=== PATIENT | female | born 1950 | race Caucasian/White ===

== ENCOUNTER → 2023-12-05 10:15 | Outpatient (REF) | payer OTHER, SELFPAY | LOC: RAD 10:15 | PROVIDERS: ATTENDING PHYSICIAN Family Medicine | DX: M79.642 Pain in left hand (principal); M79.89 Other specified soft tissue disorders | CPT/HCPCS: 73130 ==

== ENCOUNTER → 2023-12-20 10:53 | Outpatient (REF) | payer OTHER, SELFPAY | LOC: RAD 10:53 | PROVIDERS: ATTENDING PHYSICIAN Physician Assistant; FAMILY PHYSICIAN Family Medicine | DX: R06.02 Shortness of breath (principal) | CPT/HCPCS: 71046 ==

== ENCOUNTER → 2024-02-13 06:34 | Day surgery (SDC) | payer OTHER, SELFPAY | LOC: GI 06:34 | PROVIDERS: ATTENDING PHYSICIAN Internal Medicine Gastroenterology | DX: Z12.11 Encounter for screening for malignant neoplasm of colon (principal); K63.5 Polyp of colon; K55.20 Angiodysplasia of colon without hemorrhage; K57.30 Diverticulosis of large intestine without perforation or abscess without bleeding; K64.8 Other hemorrhoids; Z86.010 Personal history of colon polyps | CPT/HCPCS: 45380; 88305 ==

== ENCOUNTER → 2024-05-10 10:41 | Outpatient (REF) | payer OTHER, SELFPAY | LOC: RAD 10:41 | PROVIDERS: ATTENDING PHYSICIAN Family Medicine | DX: R06.09 Other forms of dyspnea (principal); M79.89 Other specified soft tissue disorders | CPT/HCPCS: 71046 ==

== ENCOUNTER → 2024-05-21 17:14 | Outpatient (REF) | payer OTHER, SELFPAY | LOC: RCS 17:14 | PROVIDERS: ATTENDING PHYSICIAN Family Medicine | DX: R06.09 Other forms of dyspnea (principal); M79.89 Other specified soft tissue disorders | CPT/HCPCS: 93306 ==

== ENCOUNTER → 2024-07-04 12:50 | Outpatient (REF) | payer OTHER, SELFPAY | LOC: RAD 12:50 | PROVIDERS: ATTENDING PHYSICIAN Family Medicine | DX: R79.89 Other specified abnormal findings of blood chemistry (principal); K76.0 Fatty (change of) liver, not elsewhere classified | CPT/HCPCS: 76700 ==

== ENCOUNTER → 2024-11-19 07:19 | Outpatient (REF) | payer OTHER, SELFPAY | LOC: HWRCS 07:19 | PROVIDERS: ATTENDING PHYSICIAN Internal Medicine; FAMILY PHYSICIAN Family Medicine | DX: R07.9 Chest pain, unspecified (principal); I20.1 Angina pectoris with documented spasm; I51.81 Takotsubo syndrome; I44.0 Atrioventricular block, first degree; R94.31 Abnormal electrocardiogram [ECG] [EKG] | CPT/HCPCS: 78452; 93017; A9500 ==

== ENCOUNTER → 2025-02-07 14:09 | Outpatient (REF) | payer OTHER, SELFPAY | LOC: RAD 14:09 | PROVIDERS: ATTENDING PHYSICIAN Physician Assistant; FAMILY PHYSICIAN Family Medicine; REFERRING PHYSICIAN Physician Assistant | DX: M53.3 Sacrococcygeal disorders, not elsewhere classified (principal); R05.3 Chronic cough; R06.09 Other forms of dyspnea; M25.552 Pain in left hip | CPT/HCPCS: 71046; 72220; 73502 ==

== ENCOUNTER → 2025-03-01 10:53 | Outpatient (REF) | payer OTHER, SELFPAY | LOC: RCS 10:53 | PROVIDERS: ATTENDING PHYSICIAN Physician Assistant | DX: R06.09 Other forms of dyspnea (principal) | CPT/HCPCS: 93306 ==

== ENCOUNTER → 2025-03-18 09:02 | Outpatient (REF) | payer OTHER, SELFPAY | LOC: RAD 09:02 | PROVIDERS: ATTENDING PHYSICIAN Physician Assistant | DX: M85.852 Other specified disorders of bone density and structure, left thigh (principal) | CPT/HCPCS: 77080 ==

== ENCOUNTER → 2025-03-26 13:03 | Outpatient (REF) | payer OTHER, SELFPAY | LOC: RAD 13:03 | PROVIDERS: ATTENDING PHYSICIAN Physician Assistant | DX: R06.02 Shortness of breath (principal); R53.83 Other fatigue | CPT/HCPCS: 71260; 74177; Q9967 ==

== ENCOUNTER 2025-04-10 06:24 | Day surgery (SDC) | payer OTHER, SELFPAY | END 2025-04-10 10:29 | disposition home or self-care (01) | LOC: GI 06:24 | PROVIDERS: ATTENDING PHYSICIAN Internal Medicine Gastroenterology | DX: R12 Heartburn (principal); K70.30 Alcoholic cirrhosis of liver without ascites; K44.9 Diaphragmatic hernia without obstruction or gangrene; I86.4 Gastric varices; K22.89 Other specified disease of esophagus; K31.89 Other diseases of stomach and duodenum | CPT/HCPCS: 43239; 87220; 88305; 88342 ==

== ENCOUNTER → 2025-05-14 12:07 | Outpatient (REF) | payer OTHER, SELFPAY | LOC: RAD 12:07 | PROVIDERS: ATTENDING PHYSICIAN Physician Assistant | DX: M79.671 Pain in right foot (principal); M25.571 Pain in right ankle and joints of right foot | CPT/HCPCS: 73610; 73630 ==

== ENCOUNTER → 2025-05-16 10:43 | Outpatient (REF) | payer OTHER, SELFPAY ==
[2025-05-16 11:37] LABS: Hematocrit 38.6 % (37.0-47.0); Hemoglobin 12.5 g/dL (12.0-16.0); Mean Corp Hgb Conc. 32.4 g/dL (33.0-37.0); Mean Corpuscular Volume 100.3 fL (81.0-99.0); Nucleated Red Blood Cells % 0 %; Platelet Count 153 10^3/uL (130-400); Red Cell Dist. Width 13.7 % (11.5-14.5)
[2025-05-16 12:01] LABS: Blood Urea Nitrogen 20 mg/dl (7-17); Calcium 9.4 mg/dl (8.4-10.2); Carbon Dioxide 22 mmol/L (22-30); Chloride 107 mmol/L (98-107); Glucose 126 mg/dl (70-99); Potassium 4.1 mmol/L (3.5-5.1); Sodium 137 mmol/L (135-145); eGFR 59.49
== END ==
LOC: REG 10:43
PROVIDERS: ATTENDING PHYSICIAN Student in an Organized Health Care Education/Training Program; FAMILY PHYSICIAN Physician Assistant
DX: Z01.818 Encounter for other preprocedural examination (principal)
CPT/HCPCS: 36415; 80048; 85025

== ENCOUNTER 2025-05-28 23:35 | Inpatient (IN) | payer OTHER, SELFPAY ==
[2025-05-28 14:39] VITALS: BP 130/71
[2025-05-28 15:04] LABS: Hematocrit 33.5 % (37.0-47.0); Hemoglobin 11.4 g/dL (12.0-16.0); Mean Corp Hgb Conc. 34.0 g/dL (33.0-37.0); Mean Corpuscular Volume 95.7 fL (81.0-99.0); Nucleated Red Blood Cells % 0 %; Platelet Count 163 10^3/uL (130-400); Red Cell Dist. Width 14.4 % (11.5-14.5)
[2025-05-28 15:13] LABS: APTT 37.0 Sec (23.4-35.0); INR 1.42; PT 17.9 Sec (11.4-14.6)
[2025-05-28 15:24] LABS: ALT (SGPT) 32 U/L (0-35); AST (SGOT) 51 U/L (14-36); Albumin 3.9 g/dl (3.5-5.0); Alkaline Phosphatase 121 U/L (38-126); Blood Urea Nitrogen 19 mg/dl (7-17); Calcium 9.2 mg/dl (8.4-10.2); Carbon Dioxide 22 mmol/L (22-30); Chloride 109 mmol/L (98-107); Glucose 124 mg/dl (70-99); Potassium 3.3 mmol/L (3.5-5.1); Sodium 138 mmol/L (135-145); Total Protein 7.4 g/dl (6.3-8.2); eGFR > 60.00
--- NOTE | 2025-05-28 16:52 | ED.GENMED ---
History of Present Illness
<Bridget Peters NP - Last Filed: 05/28/25 23:05>
General
Chief Complaint: Change in Mental Status
Source: patient
Exam Limitations: none
Time Seen by Provider: 05/28/25 16:32
Nursing documentation reviewed up to this point in time: agreed with
History of Present Illness
History of Present Illness:
Patient to emergency department for evaluation of increased confusion, nausea, vomiting, diarrhea. According to family she had a recent fall with a fracture to her right distal fibula. She had surgery on this ankle 1 week ago, however family
states she will need another procedure. She was given a prescription for oxycodone for pain. Patient states she did not take the pain medication however the family is unsure. Over the past 24 hours they have noticed increasing confusion with her.
They also note episodes of vomiting and diarrhea. Patient reports that the stool is black. No prior history of same. She was evaluated by PCP and advised to come to the emergency department. PCP report of concern for OxyContin overuse. PCP
also reports a history of alcohol abuse with last drink possibly 2 to 3 days ago.
Past History
<Bridget Peters NP - Last Filed: 05/28/25 23:05>
Past History
ED Past Medical History: Asthma, GERD, CO (2013), Psychiatric (Anxiety) and Other (Takosubo's heart disease, osteoporosis)
ED Past Surgical History: Cardiac (Cardiac catheterization April 2014, Takosubo's heart disease)
Social History
Tobacco: Former smoker
Alcohol: Other (PCP reports history of alcohol abuse. Patient admits to drinking wine daily. Reports last drink was approximately 2 to 3 days ago.)
Personal:
Living: with family
Employment: Employed
Family History
Family History: Other (Noncontributory)
Review of Systems
<Bridget Petesr NP - Last Filed: 05/28/25 23:05>
Review of Systems
All Other Systems: ROS reviewed and negative except as documented in HPI and ROS
Constitutional: Reports no symptoms
EENT: Reports no symptoms
Respiratory: Reports no symptoms
Cardiac: Reports no symptoms
ABD/GI: Reports abdominal pain, nausea, vomiting and diarrhea
: Reports no symptoms
Musculoskeletal: Reports no symptoms
Skin: Reports no symptoms
Neurological: Reports no symptoms
Psychiatric: Reports no symptoms
Phy Exam
<Bridget Peters SENIOR SHAREPOINT DEVELOPER - Last Filed: 05/28/25 23:05>
General Physical Exam
General Presentation: moderate distress
General age: appears stated age
General Skin: warm and dry
General Habitus: normal
General Mental: alert
General Hydration: dry mucous membranes
Cardiovascular Exam
Cardiovascular Exam: regular rate/rhythm and no edema
Pulmonary Exam
Pulmonary Exam: lungs clear and no respiratory distress
Gastrointestinal Exam
Gastrointestinal Exam: normal bowel sounds, soft, no organomegaly, no pulsatile mass, non distended and no cva tenderness
Palpation: generalized: Moderate tenderness
Musculoskeletal Exam
Musculoskeletal Exam: full ROM
Skin Exam
Skin Exam: normal color, warm/dry and no rash
Psychiatric Exam
Psychiatric Exam: normal mood/affect
Course
<Bridget Peters SENIOR SHAREPOINT DEVELOPER - Last Filed: 05/28/25 23:05>
Orders/Labs/Results
Orders:
Orders
05/28/25 14:50
Complete Blood Count/With Diff Urgent
Comprehensive Metabolic Panel Urgent
Lipase Urgent
Magnesium Urgent
Comment: ADD ON
PTT Urgent
Prothrombin Time Urgent
05/28/25 16:33
Add On- LAB Urgent
Tests Added?: lipase
05/28/25 16:48
0.9% Sodium Chloride 1000 ml [Nss] 1,000 ml IV BOLUS
Pantoprazole [Protonix IV] 40 mg IV NOW STA
05/28/25 16:58
CT Head W/o Iv Contrast Urgent
Comment:
Reason For Exam: altered mental status
05/28/25 16:59
CT Abd/pelvis W Iv Cont Urgent
Comment:
Reason For Exam: Diffuse abd pain, elevated T. bili, heme pos stool
05/28/25 20:15
US Abdomen Limited Urgent
Reason For Exam: distended GB on CT
05/28/25 21:42
KCl 40 Meq/0.9%Sodchl 1000 ml [NSS with KCL 40 MEQ] 40 meq in 1,000 ml IV 250 mls/hr
05/28/25 21:43
Add On- LAB Urgent
Tests Added?: Mg
05/28/25 22:13
Urine Drug Abuse Screen Urgent
05/28/25 22:49
Magnesium Sulfate 1 grams 0.9% Sodium Chloride 100 ml [Nss] 100 ml IV NOW
05/28/25 22:54
Ammonia Urgent
Abnormal Lab Results
05/28/25
14:50
RBC 3.50 L 10^6/uL
(4.20-5.40)
Hgb 11.4 L g/dL
(12.0-16.0)
Hct 33.5 L %
(37.0-47.0)
MCH 32.6 H pg
(27.0-31.0)
Absolute Monos (auto) 0.7 H 10^3/uL
(0.1-0.6)
Monocytes % 14.6 H %
(1.7-9.3)
PT 17.9 H Sec
(11.4-14.6)
APTT 37.0 H Sec
(23.4-35.0)
Potassium 3.3 L mmol/L
(3.5-5.1)
Chloride 109 H mmol/L
(98-107)
BUN 19 H mg/dl
(7-17)
Glucose 124 H mg/dl
(70-99)
Total Bilirubin 3.4 H mg/dl
(0.2-1.3)
AST 51 H U/L
(14-36)
05/28/25 14:50
05/28/25 14:50
Vital Signs
Initial and Last Documented VS:
Initial Vital Signs
Temp Pulse Resp BP Pulse Ox
98.0 F 88 18 130/71 98
05/28/25 14:39 05/28/25 14:39 05/28/25 14:39 05/28/25 14:39 05/28/25 14:39
Last Documented Vital Signs
Temp Pulse Resp BP Pulse Ox
98.0 F 73 18 141/69 96
05/28/25 14:39 05/28/25 22:45 05/28/25 14:39 05/28/25 21:00 05/28/25 22:45
<Parmjit Perez, DO - Last Filed: 05/28/25 16:56>
Orders/Labs/Results
Orders:
Orders
05/28/25 14:50
Complete Blood Count/With Diff Urgent
Comprehensive Metabolic Panel Urgent
Lipase Urgent
Magnesium Urgent
Comment: ADD ON
PTT Urgent
Prothrombin Time Urgent
05/28/25 16:33
Add On- LAB Urgent
Tests Added?: lipase
05/28/25 16:48
0.9% Sodium Chloride 1000 ml [Nss] 1,000 ml IV BOLUS
Pantoprazole [Protonix IV] 40 mg IV NOW STA
05/28/25 16:58
CT Head W/o Iv Contrast Urgent
Comment:
Reason For Exam: altered mental status
05/28/25 16:59
CT Abd/pelvis W Iv Cont Urgent
Comment:
Reason For Exam: Diffuse abd pain, elevated T. bili, heme pos stool
05/28/25 20:15
US Abdomen Limited Urgent
Reason For Exam: distended GB on CT
05/28/25 21:42
KCl 40 Meq/0.9%Sodchl 1000 ml [NSS with KCL 40 MEQ] 40 meq in 1,000 ml IV 250 mls/hr
05/28/25 21:43
Add On- LAB Urgent
Tests Added?: Mg
05/28/25 22:13
Urine Drug Abuse Screen Urgent
05/28/25 22:49
Magnesium Sulfate 1 grams 0.9% Sodium Chloride 100 ml [Nss] 100 ml IV NOW
05/28/25 22:54
Ammonia Urgent
Abnormal Lab Results
05/28/25
14:50
RBC 3.50 L 10^6/uL
(4.20-5.40)
Hgb 11.4 L g/dL
(12.0-16.0)
Hct 33.5 L %
(37.0-47.0)
MCH 32.6 H pg
(27.0-31.0)
Absolute Monos (auto) 0.7 H 10^3/uL
(0.1-0.6)
Monocytes % 14.6 H %
(1.7-9.3)
PT 17.9 H Sec
(11.4-14.6)
APTT 37.0 H Sec
(23.4-35.0)
Potassium 3.3 L mmol/L
(3.5-5.1)
Chloride 109 H mmol/L
(98-107)
BUN 19 H mg/dl
(7-17)
Glucose 124 H mg/dl
(70-99)
Total Bilirubin 3.4 H mg/dl
(0.2-1.3)
AST 51 H U/L
(14-36)
05/28/25 14:50
05/28/25 14:50
Vital Signs
Initial and Last Documented VS:
Initial Vital Signs
Temp Pulse Resp BP Pulse Ox
98.0 F 88 18 130/71 98
05/28/25 14:39 05/28/25 14:39 05/28/25 14:39 05/28/25 14:39 05/28/25 14:39
Last Documented Vital Signs
Temp Pulse Resp BP Pulse Ox
98.0 F 73 18 141/69 96
05/28/25 14:39 05/28/25 22:45 05/28/25 14:39 05/28/25 21:00 05/28/25 22:45
<Bridget Peters NP - Last Filed: 05/28/25 23:05>
*Radiology
Radiology exam reviewed: radiology read reviewed
*Pulse Oximetry
SaO2: 98
Oxygen Mode of Delivery: Room air
Patient hypoxic: no
*Critical Care Note
Total Time (30-74mins, 75-104mins- exclusive of procedures): Not Applicable
<Bridget Peters NP - Last Filed: 05/28/25 23:05>
Update Note
Update Note:
Patient to the emergency department for evaluation of increasing confusion, nausea, vomiting, diarrhea. She had surgery approximately 1 week ago on her right distal fibula for a fracture after a fall. She was prescribed oxycodone for pain control
at home. Patient states that she has not been taking any narcotic pain medications however family was unsure if this was accurate. She does have a history of daily alcohol use as reported by her primary care provider. Patient does admit to daily
wine drinking but reports she has not had a drink in the past 4 days. There are no signs of withdrawal on her exam today. Patient also reports that her stools are black. Rectal exam completed and confirms black tarry stool, heme positive.
Pantoprazole 40 mg initiated along with IV fluids. On exam she is awake and alert and cooperative. Is oriented to person place and time. CT of head completed, no acute findings. Labs reviewed WBC 4.9. Hemoglobin 11.4 hematocrit 33.5. K3 0.3
1LNSS with 40 meq KCL ordered. BUN 19 creatinine normal at 0.7 T. bili is 3.4 with an AST of 5.1. Ultrasound report reviewed, similar to results of ultrasound performed 07/02.. Gallbladder distention. No gallstones or wall thickening or
Pericholecystic fluid noted. Common bile duct 9 mm. This is decreased from 07/02 when the bile duct measured approximately [address] of abdomen and pelvis also completed. Mild circumferential wall thickening of the sigmoid colon concerning for
colitis. No no perforation or abscess. Case discussed with Dr. Beyer who also reviewed labs and radiology imaging. Patient will be admitted to the hospitalist service for GI bleeding, dehydration, hypokalemia
ED Attending Note
<Bridget Peters NP - Last Filed: 05/28/25 23:05>
-
Portions of this chart may have been created with voice recognition software.� Occasional wrong word or��sound alike� substitutions may have occurred due to the inherent limitations of voice recognition software.
<Parmjit Perez DO - Last Filed: 05/28/25 16:56>
ED Attending Note
Patient seen and examined by attending physician: Yes
I performed the substantive portion of visit, reviewed & personally made and approve the management plan that is documented in note by myself or WILLIAMS.: Yes
ED Attending Note:
I have seen and evaluated the patient with a [id number] encounter. I have spoken to the advance practicer provider and involved in the medical history, the physical exam, medical decision making.
Evaluation and management service: agree unless noted differently below.
Results interpretation: agree unless noted differently below.
Focused HPI: 74-year-old female presenting with family for evaluation of altered mental status. Patient had recent femur fracture repair and has been on oxycodone for the past few days. Family believes she is taking too much accidentally. Patient
is unsure if she has taken too many. She is also complaining of black stool and abdominal pain. She apparently was sweaty and tremulous yesterday. She admits that she is a daily alcohol drinker and stopped about 4 days ago. We discussed some of
her symptoms could be mild withdrawal
Physical exam: No focal neurodeficits. Mild left upper and lower abdominal pain. No right upper quadrant tenderness
Medical Decision Making: Given the black stools, patient started on Protonix. Given the abdominal pain, will obtain CT. We discussed possible mild alcohol withdrawal as well. Patient will ultimately require admission
Discharge Plan
Departure
Patient Disposition: Admit
Date of Disposition: 05/28/25
Time of Disposition: 22:00
Presentation/result/management discussed w/ accepting MD/DO: Hospitalist
Patient with high blood pressure during this ER visit?: Yes
Condition: Fair
Covid-19: Not Applicable
Discharge Problem:
GI (gastrointestinal bleed), Acute dehydration, Hypokalemia
Prescriptions:
No Action
citalopram [Celexa] 40 mg Tablet
40 mg PO DAILY
clonazepam 0.5 mg Tablet
0.5 mg PO HS
rosuvastatin [Crestor] 5 mg Tablet
5 mg PO DAILY
quetiapine [Seroquel] 50 mg Tablet
150 mg PO HS
thiamine HCl (vitamin B1) 100 mg Tablet
100 mg PO DAILY
omeprazole 40 mg Capsule,Delayed Release(Dr/Ec)
40 mg PO DAILY
ferrous sulfate 325 mg (65 mg iron) Tablet
325 mg PO DAILY
lisinopril 5 mg Tablet
5 mg PO DAILY
Trelegy Ellipta 100-62.5-25 mcg Blister With Device
1 inh INHALATION R DAILY
Referrals:
Amanda Andrews PA [Family Provider, Family Practice]
Interventions
Interventions:
*Risk Screen - Suicide Last Done: 05/28/25 14:39
*General Assessment Last Done: 05/28/25 17:03
*Neglect/Abuse Screening Last Done: 05/28/25 17:03
*ED- Fall Risk Assessment Last Done: 05/28/25 17:03
*ED COVID-19 Vaccine History Last Done: 05/28/25 17:03
*ED Influenza Vaccine History Last Done: 05/28/25 17:03
ED- Pulmonary Assessment Last Done: 05/28/25 19:30
ED- Neurological Assessment Last Done: 05/28/25 19:30
ED- Cardiac Assessment Last Done: 05/28/25 19:30
ED Swallowing Screen Last Done: 05/28/25 22:12
Discharge Date and Time
Print Language: GRENADIAN
[2025-05-28 17:03] VITALS: BMI 30.1
[2025-05-28 17:04] LABS: Lipase 92 U/L (23-300)
[2025-05-28 17:14] VITALS: BP 137/55
[2025-05-28] MEDS: PROTONIX IV 40 MG IV (17:15)
[2025-05-28] MEDS: NSS 1000 IV (17:15)
[2025-05-28 18:00] VITALS: BP 136/56
[2025-05-28 19:25] VITALS: BP 142/66
[2025-05-28 20:27] VITALS: BP 119/62
[2025-05-28 21:00] VITALS: BP 141/69
[2025-05-28] MEDS: NSS with KCL 40 MEQ 1000 IV (22:09)
--- NOTE | 2025-05-28 22:13 | HPS.HSE ---
Addendum entered and electronically signed by Bobby Gray DO 05/28/25 23:42:
Patient seen and examined independently. Agree with findings and plan as set forth by Demetrice Alarcon PA-C.
Patient is a 74y F with PMH significant for alcohol use disorder, cirrhosis and known varices who presents to ED complaining of N/V, black stools and confusion. Patient states that she underwent R fibula ORIF one week ago. She was taking
oxycodone as well as ibuprofen 600mg BID for pain control post-op. Two days ago she developed nausea and mild abdominal discomfort. She has had few episodes of non-bloody stools. Patient also notes black, loose stools. Patient appeared confused
today according to family and was brought to the ED for further evaluation and treatment.
Patient has a chronic history of alcohol use disorder. Her last drink was about 2 days ago.
Patient had an EGD done last month that showed grade II non-bleeding esophageal varices.
Ass:
Upper GI Bleed
Acute TME (med effect v hepatic encephalopathy)
Alcohol Use Disorder with Esophageal Varices and Mild Thrombocytopenia
Hypokalemia
Benign Hypertension
Bipolar Disorder
Asthma without Acute Exacerbation
Right Distal Fibula Fracture s/p ORIF
Plan:
Admit for further evaluation and treatment.
Given known esophageal varices, will treat with IV PPI infusion / octreotide and ceftriaxone for now.
Follow H&H and transfuse if needed.
GI evaluation for additional recommendations and possible endoscopic examination.
MSAS protocol / BZDs as needed for withdrawal symptoms.
NWB to the RLE. PT / OT evaluations.
Hold PO medications.
Original Note:
Family Physician
-
Family Physician: ALEJANDRO Byers
Chief Complaint
-
Confusion, Nausea, Vomiting and Diarrhea
History of Present Illness
Patient is a 74 y/o female past medical history of alcohol use disorder with alcoholic cirrhosis and gastroesophageal varices who presents with confusion, nausea, vomiting and diarrhea. Patient reports she underwent surgery for a right ankle
fracture one week ago. She reports due to the pain she has been taking ibuprofen 600mg twice a days and oxycodone 5mg two to three times a day. One Monday she developed nausea, vomiting and diarrhea. She describe vomiting a yellow/green in color
without evidence of blood. She described diarrhea as very dark / black in color. She reports mild abdominal discomfort. Today family noted that she was more confused prompting them to bring her to the emergency department for evaluation. Patient
agrees that her mind is not as clear as usual. Patient expresses concern that she may also be in alcohol withdrawal as she usually drinks about half bottle of wine a night, but has not had any alcohol since onset of vomiting two days ago.
Medical History
Past Medical History
Past Medical History: Reports Other
Additional Past Medical History:
Alcohol Use Disorder
Alcoholic Cirrhosis
Gastroesophageal Varices
Takotsubo Cardiomyopathy
Anxiety / Depression / Bipolar Disorder
Asthma
Past Surgical History: Reports Other
Additional Past Surgical History:
Left Knee Replacement
Right Ankle ORIF
Social History
Tobacco: Non-smoker
Alcohol: Daily
Family History
Family History: Not pertinent
Allergies / Home Medications
Allergies reflects when Allergies were last updated in [facility].
Home Medications with original date entered in [facility]
Allergy/Medication List:
Allergies
Allergy/AdvReac Type Severity Reaction Status Date / Time
duloxetine HCl (From Allergy diarrhea Verified 05/28/25 14:39
Cymbalta)
pine nuts,walnuts,pecans Allergy tongue and Uncoded 05/28/25 14:39
throat
swell
Home Medications
citalopram 40 mg tablet (Celexa) 40 mg PO DAILY Mental Health/Anxiety 07/04/23
clonazepam 0.5 mg tablet 0.5 mg PO HS Mental Health/Anxiety 07/04/23
quetiapine 50 mg tablet (Seroquel) 150 mg PO HS Mental Health/Anxiety 07/04/23
rosuvastatin 5 mg tablet (Crestor) 5 mg PO DAILY High Cholesterol 07/04/23
ferrous sulfate 325 mg (65 mg iron) tablet 325 mg PO DAILY Supplement 05/28/25
fluticasone fur. 100 mcg-umeclid 62.5 mcg-vilant 25 mcg inhalat.powder (Trelegy Ellipta) 1 inh inhalation R DAILY Lung/Breathing Issues 05/28/25
lisinopril 5 mg tablet 5 mg PO DAILY Blood Pressure 05/28/25
omeprazole 40 mg capsule,delayed release 40 mg PO DAILY Gastrointestinal Issue 05/28/25
thiamine HCl (vitamin B1) 100 mg tablet 100 mg PO DAILY Supplement 05/28/25
Review of Systems
-
A 12 point ROS was completed and negative except as noted: Yes
Constitutional: Denies Fever or Chills
Respiratory: Denies Cough or Trouble Breathing
Cardiac: Denies Chest Pain or Palpitations
Abdomen/GI: Reports See HPI
Physical Exam
Vital Signs
Vital Signs
Temp Pulse Resp BP Pulse Ox
98.0 F 78 18 141/69 97
05/28/25 14:39 05/28/25 22:08 05/28/25 14:39 05/28/25 21:00 05/28/25 22:08
Physical Exam
General: Comfortable and Conversant
HEENT: Anicteric and Moist mucous membranes
Respiratory: Clear and Non Labored Respirations
Cardiac: S1/S2 and Regular Rhythm
GI: Soft and Tender (Mild throughout, though slightly more tender in right upper quadrant)
Rectal: Other (Black, tarry, heme-positive per ED provider)
Musculoskeletal: No Clubbing, No Cyanosis and Other (Right foot/ankle wrapped in ZINA)
Skin: Warm and Dry
Neuro: Awake, Alert, Oriented and Nonfocal/grossly intact
Psych: Calm
Laboratory Results
-
05/28/25 14:50
05/28/25 14:50
Laboratory Results
PT 17.9 Sec (11.4-14.6) H 05/28/25 14:50
INR 1.42 05/28/25 14:50
APTT 37.0 Sec (23.4-35.0) H 05/28/25 14:50
Total Bilirubin 3.4 mg/dl (0.2-1.3) H 05/28/25 14:50
AST 51 U/L (14-36) H 05/28/25 14:50
ALT 32 U/L (0-35) 05/28/25 14:50
Alkaline Phosphatase 121 U/L (38-126) 05/28/25 14:50
Lipase 92 U/L (23-300) 05/28/25 14:50
Data Reviewed
-
Lab Data: Labs Reviewed by me
Old Records: Reviewed
Impression/Plan
-
GI Bleed, likely upper in nature as patient has known gastroesophageal varices and was taking high dose NSAIDs
-Consult GI
-Start Protonix and Octreotide Infusions
-Start ceftriaxone
-Monitor serial Hgb
Confusion, suspect related to polypharmacy with recent addition of oxycodone to chronic clonazepam
-Hold oxycodone and clonazepam for now
-Check ammonia level
Hypokalemia
-Replace potassium
-Recheck labs in AM
Elevated Bilirubin
-Patient has long standing history of common bile duct dilation however bilirubin has not previously been elevated
-Consider MRI/MRCP when stable
-Continue to trend bilirubin
Alcohol Use Disorder
-Continue thiamine and folic acid
-Monitor for alcohol withdrawal
Anxiety / Depression /Bipolar Disorder
Benzodiazepine Dependence
-Hold clonazepam, citalopram and quetiapine
Essential Hypertension
-Hold lisinopril
Hyperlipidemia
-Hold rosuvastatin
Asthma, no acute exacerbation
-Continue Trelegy
Right Distal Fibula Fracture s/p Right Fibula ORIF (?) ~ one week ago
-Unclear weight bearing status, will make non-weight bearing for now - Please reach out to Dr. Soto in AM to clarify
-Consult PT/OT
DVT proph: SCDs
Code Status: Full Code
[2025-05-28 22:25] LABS: Magnesium 1.7 mg/dl (1.6-2.3)
[2025-05-28 23:33] LABS: Ammonia < 9 umol/L (9-30)
[2025-05-28] MEDS: ROCEPHIN 1000 MG IV (23:41)
[2025-05-28] MEDS: SANDOSTATIN 50 MCG IV (23:42)
[2025-05-28] MEDS: STERILE WATER FOR INJECTION 10 ML IV (23:45)
[2025-05-28] MEDS: SANDOSTATIN 250 MCG IV (23:48)
[2025-05-28] MEDS: MAGNESIUM SULFATE 102 GRAMS IV (23:53)
[2025-05-28] MEDS: PROTONIX 100 IV (23:55)
[2025-05-29] VITALS (12 sets, daily range): BP systolic 111–148; BP diastolic 52–71; BMI 31.4
[2025-05-29 00:50] LABS: Hematocrit 32.7 % (37.0-47.0); Hemoglobin 10.8 g/dL (12.0-16.0)
[2025-05-29] MEDS: NSS 1000 IV ×3 (01:09→21:17)
--- NOTE | 2025-05-29 01:18 | PTCARENOTE ---
Received pt from ED via stretcher. AAOx3; pleasant. No complaints of nausea at this time. No evidence of bleeding. Suction set up at bedside. Assessment as documented. Call gutierrez within reach.
[2025-05-29 05:20] LABS: Hematocrit 31.0 % (37.0-47.0); Hemoglobin 10.4 g/dL (12.0-16.0); Mean Corp Hgb Conc. 33.5 g/dL (33.0-37.0); Mean Corpuscular Volume 100.3 fL (81.0-99.0); Platelet Count 136 10^3/uL (130-400); Red Cell Dist. Width 14.5 % (11.5-14.5)
[2025-05-29 05:33] LABS: ALT (SGPT) 29 U/L (0-35); AST (SGOT) 49 U/L (14-36); Albumin 3.3 g/dl (3.5-5.0); Alkaline Phosphatase 103 U/L (38-126); Blood Urea Nitrogen 15 mg/dl (7-17); Calcium 7.9 mg/dl (8.4-10.2); Carbon Dioxide 18 mmol/L (22-30); Chloride 117 mmol/L (98-107); Estimated Creatinine Clearance 72 ml/min; Glucose 107 mg/dl (70-99); Magnesium 2.0 mg/dl (1.6-2.3); Potassium 4.1 mmol/L (3.5-5.1); Sodium 144 mmol/L (135-145); Total Protein 6.2 g/dl (6.3-8.2); eGFR > 60.00
--- NOTE | 2025-05-29 06:57 | CON.GI ---
Addendum entered and electronically signed by Roney Bay DO 05/29/25 10:22:
I saw and examined the patient.
The HUMANITIES TEACHER's note was reviewed and I agree with the note.
Comment: Ms Beaver is a 74 y.o female with a past medical history significant for AUD, newly diagnosed compensated cirrhosis with known varices (without bleeding) and recent R fibular ORIF one week ago who presented to the ED with nausea, abdominal
discomfort and darker stools. Was taking oxycodone and Ibuprofen 600 mg BiD for post-op pain control over the past week. Two days ago had abdominal discomfort, nausea and darker black stools prompting her come to the ED. She is still unfortunately
drinking and drank a bottle of wine a few days ago. In regards to her cirrhosis, felt 2/2 EtOH without any known compensations. Last EGD 04/2025 with GOV2 and otherwise grossly normal. Otherwise, she is without any prior hx of bleeding EV, HE,
ascites or other known decompensations. In the ED, she was afebrile and HD-stable. Labs notable for drop in Hgb 11s -> 10s and normal BUN. She appeared confused on admission concerning for possible HE. Clinically, concern for NSAID-induced PUD upper
GI bleeding given her recent NSAIDs resulting in her abdominal pain, darker stools and symptomatic anemia. Much less likely variceal GI bleed based on her presentation although she continues to drink. Some concern for HE and suspect precipitated by
UGIB along with her recent oxycodone. Recommend keeping NPO, IV PPI gtt, IV Octreotide, along with IV Ceftriaxone pending EGD. Low threshold to start lactulose after EGD. Agree with rest of care as outlined below. See same day EGD report for
additional findings and recommendations.
GI will continue to follow, please call with any questions or concerns.
Original Note:
Consultation
-
Date/Time Consultation Requested: 05/29/25 0030
Date/Time Consultation Performed: 05/29/25 0700
Requesting Provider: Demetrice Alarcon PA-C
Performing Provider: Paris Kriney, MINE MOTOR OPERATORRoney SR DO
Reason for Consultation: GI bleed
Medical History
Chief Complaint / HPI
Chief Complaint: black stools
History of Present Illness:
Pt is a 74yo with hx GERD, anxiety, depression, bipolar, Takosubo's heart disease, prior AZ, asthma, insomnia, ETOH cirrhosis(newly diagnosed on CT 03/2025) with last ETOH (05/18 drinking 1 bottle wine daily) GOV2, EV, colon AVM, colon polyps,
dilated CBD due for follow up MRI. She now resents with recent fall with distal fibula fracture. She had been taking OxyContin and Aleve use. She now presents with multiple complaints with confusion, nausea, vomiting, or diarrhea with reports of
black stool. She also admits to vomiting but was states more yellow- green emesis. she also admits to lower abdominal pain and constipation with narcotic use. She otherwise denies odynophagia, dysphagia, GERD, diarrhea, or red stools. Pt with
recent EGD as noted. CT on admission with concern for colitis with distended GB and dilated CBD and US with similar finding with GB distention CBD dilation at 9 mm but prior CBD was 12mm in 2023. Pt denies anticoagulation use. Prior liver serology
neg 2022. Labs on admission with hbg 11.4 with drop to 10.4, platelets 136, K 3.3, bili 3.4, AST 51, ALT 32, alk phos 121, INR 1.42.
04/13/25 - EGD Dr. Greer - White nummular lesions in esophageal mucosa. Cells for cytology obtained.PAPA sent 2 cm hiatal hernia. Type 2 gastroesophageal varices (GOV2, esophageal varices which extend along the fundus), without bleeding
Erythematous mucosa in the antrum. Biopsied.Normal examined duodenum. Biopsied. bx neg H pylori, duodenal normal villous architecture
02/13/24- colon Dr. Greer- Non-bleeding internal hemorrhoids. - One small 5mm AVM in ascending colon - Diverticulosis in the sigmoid colon and in the descending colon.
- The examination was otherwise normal.- The examined portion of the ileum was normal- Two 5 to 6 mm polyps in the ascending colon, removed with a jumbo cold forceps. Resected and retrieved. bx HP
Past Medical History
Past Medical History: Asthma, GERD, Hypercholesterolemia, [place], Psychiatric (bipolar depression, anxiety ) and Other (insomnia, ETOH cirrhosis, GOV-2, EV, osteoporosis, takotsubo cardiomyopathy, colon polyps- TA and HP, anemia, CBD dilation, colonic
AVM)
Past Surgical History: Orthopedic (right ankle ORIF, left TKR)
Social History
Tobacco: Non-Smoker
Alcohol: Daily (quit 05/18 prior to admission- was drinking 1 bottle wine daily )
Drug: None
Personal:
Living: With Family
Employment: Retired
Family History
Family History: Other (aunt with BRITO cirrhosis )
Allergies / Home Medications
Allergy/AdvReac Type Severity Reaction Status Date / Time
duloxetine HCl (From Allergy diarrhea Verified 05/28/25 14:39
Cymbalta)
pecan nut Allergy tongue and Verified 05/28/25 23:11
throat
swell
pine nut Allergy tongue and Verified 05/28/25 23:11
throat
swell
walnut Allergy tongue and Verified 05/28/25 23:11
throat
swell
�Medication �Instructions �Recorded
citalopram 40 mg tablet (Celexa) 40 mg PO DAILY Mental 07/04/23
Health/Anxiety
clonazepam 0.5 mg tablet 0.5 mg PO HS Mental Health/Anxiety 07/04/23
quetiapine 50 mg tablet (Seroquel) 150 mg PO HS Mental Health/Anxiety 07/04/23
rosuvastatin 5 mg tablet (Crestor) 5 mg PO DAILY High Cholesterol 07/04/23
ferrous sulfate 325 mg (65 mg 325 mg PO DAILY Supplement 05/28/25
iron) tablet
fluticasone fur. 100 mcg-umeclid 1 inh inhalation R DAILY 05/28/25
62.5 mcg-vilant 25 mcg Lung/Breathing Issues
inhalat.powder (Trelegy Ellipta)
lisinopril 5 mg tablet 5 mg PO DAILY Blood Pressure 05/28/25
omeprazole 40 mg capsule,delayed 40 mg PO DAILY Gastrointestinal 05/28/25
release Issue
thiamine HCl (vitamin B1) 100 mg 100 mg PO DAILY Supplement 05/28/25
tablet
Review of Systems
-
History Source: Patient
Constitutional: Reports No Symptoms
EENT: Reports No Symptoms
Respiratory: Reports No Symptoms
Cardiac: Reports No Symptoms
Abdomen/GI: Reports Abdominal Pain, Nausea, Vomiting, Constipated and Black Stools
: Reports No Symptoms
Musculoskeletal: Reports Other (s/p fall with ankle fracture)
Skin: Reports No Symptoms
Neurological: Reports Weakness and Other (confusion on admission)
Endocrine: Reports No Symptoms
Hematologic/Lymphatic: Reports Bleeding
Vital Signs
Temp Pulse Resp BP Pulse Ox
98.2 F 82 15 122/58 93
05/29/25 03:47 05/29/25 05:00 05/29/25 05:00 05/29/25 04:00 05/29/25 05:00
Physical Exam
Results
WBC 4.3 10^3/uL (4.8-10.8) L 05/29/25 04:47
Hgb 10.4 g/dL (12.0-16.0) L 05/29/25 04:47
Hct 31.0 % (37.0-47.0) L 05/29/25 04:47
MCV 100.3 fL (81.0-99.0) H 05/29/25 04:47
Plt Count 136 10^3/uL (130-400) 05/29/25 04:47
Absolute Neuts (auto) 2.4 10^3/uL (1.4-6.5) 05/28/25 14:50
PT 17.9 Sec (11.4-14.6) H 05/28/25 14:50
INR 1.42 05/28/25 14:50
APTT 37.0 Sec (23.4-35.0) H 05/28/25 14:50
Sodium 144 mmol/L (135-145) 05/29/25 04:47
Potassium 4.1 mmol/L (3.5-5.1) 05/29/25 04:47
Chloride 117 mmol/L (98-107) H 05/29/25 04:47
Carbon Dioxide 18 mmol/L (22-30) L 05/29/25 04:47
BUN 15 mg/dl (7-17) 05/29/25 04:47
Creatinine 0.7 mg/dL (0.6-1.0) 05/29/25 04:47
Calcium 7.9 mg/dl (8.4-10.2) L 05/29/25 04:47
Total Bilirubin 3.1 mg/dl (0.2-1.3) H 05/29/25 04:47
AST 49 U/L (14-36) H 05/29/25 04:47
ALT 29 U/L (0-35) 05/29/25 04:47
Alkaline Phosphatase 103 U/L (38-126) 05/29/25 04:47
Lipase 92 U/L (23-300) 05/28/25 14:50
Diagnostic Image Results:
04/13/25 - EGD Dr. Greer - White nummular lesions in esophageal mucosa. Cells for cytology obtained.PAPA sent 2 cm hiatal hernia. Type 2 gastroesophageal varices (GOV2, esophageal varices which extend along the fundus), without bleeding
Erythematous mucosa in the antrum. Biopsied.Normal examined duodenum. Biopsied. bx neg H pylori, duodenal normal villous architecture
02/13/24- colon Dr. Greer- Non-bleeding internal hemorrhoids. - One small 5mm AVM in ascending colon - Diverticulosis in the sigmoid colon and in the descending colon.
- The examination was otherwise normal.- The examined portion of the ileum was normal- Two 5 to 6 mm polyps in the ascending colon, removed with a jumbo cold forceps. Resected and retrieved. bx HP
05/28/25 CT Abd/pelvis W Iv Cont
New distended gallbladder and stable dilated common bile duct. Acute cholecystitis should be considered. This would better be evaluated by abdominal ultrasound as well as clinical and laboratory correlation.
Mild circumferential wall thickening of the sigmoid colon and pericolonic stranding concerning for colitis. No evidence of perforation or abscess formation. Limited evaluation without oral contrast. New
Nodular hepatic margin and varices suggesting cirrhosis.
Diverticulosis. No evidence of acute diverticulitis.
05/28/25 limited US
FINDINGS: The liver is normal in size, measuring 13.6 cm in length. It is increased in echogenicity. There is no focal hepatic lesion or intrahepatic biliary dilation. The gallbladder is distended. It measures 9 cm in length. No gallstones, wall
thickening or pericholecystic fluid is noted. The common duct is dilated, measuring 9 mm. It previously measured 12 mm 2023. The pancreas is obscured by overlying bowel gas.
IMPRESSION: Distended gallbladder and common bile duct as described above. No additional secondary findings to suggest acute cholecystitis. Similar findings were present 06/2024 suggesting likely not an acute process.. Clinical and laboratory
correlation recommended. These findings could also further be evaluated by MRCP or ERCP if indicated.
Hepatic fatty infiltration. Stable
05/28/25 HCT
No acute intracranial abnormality noted.
Mild atrophy. New
03/2025 CT Chest/abd/pel W Iv Cont
1. No significant acute abnormality identified in the chest, abdomen or pelvis, as described above.
2. Hepatic cirrhosis. Small indeterminate right hepatic lobe lesion.
3. Common bile duct dilatation without obstructing cause identified by CT.
4. Recommend further evaluation with dedicated MRI/MRCP abdomen without and with gadolinium contrast.
06/2024 US abdomen
Hepatic steatosis.
Chronic dilatation of the common bile duct measuring up to 12 mm. No intraductal calculi appreciated.
Negative for cholelithiasis.
Assessment / Plan
-
Pt is a 74yo with hx
dilated CBD due for follow up MRI. She now resents with recent fall with distal fibula fracture. She had been taking OxyContin and Aleve use. She now presents with multiple complaints with confusion, nausea, vomiting, or diarrhea with reports of
black stool. She also admits to vomiting but was states more yellow- green emesis. she also admits to lower abdominal pain and constipation with narcotic use. She otherwise denies odynophagia, dysphagia, GERD, diarrhea, or red stools. Pt with
recent EGD as noted. CT on admission with concern for colitis with distended GB and dilated CBD and US with similar finding with GB distention CBD dilation at 9 mm but prior CBD was 12mm in 2023. Pt denies anticoagulation use. Prior liver serology
neg 2022. Labs on admission with hbg 11.4 with drop to 10.4, platelets 136, K 3.3, bili 3.4, AST 51, ALT 32, alk phos 121, INR 1.42.
04/13/25 - EGD Dr. Greer - White nummular lesions in esophageal mucosa. Cells for cytology obtained.PAPA sent 2 cm hiatal hernia. Type 2 gastroesophageal varices (GOV2, esophageal varices which extend along the fundus), without bleeding
Erythematous mucosa in the antrum. Biopsied.Normal examined duodenum. Biopsied. bx neg H pylori, duodenal normal villous architecture
02/13/24- colon Dr. Greer- Non-bleeding internal hemorrhoids. - One small 5mm AVM in ascending colon - Diverticulosis in the sigmoid colon and in the descending colon.
- The examination was otherwise normal.- The examined portion of the ileum was normal- Two 5 to 6 mm polyps in the ascending colon, removed with a jumbo cold forceps. Resected and retrieved. bx HP
05/28/25 CT Abd/pelvis W Iv Cont
New distended gallbladder and stable dilated common bile duct. Acute cholecystitis should be considered. This would better be evaluated by abdominal ultrasound as well as clinical and laboratory correlation.
Mild circumferential wall thickening of the sigmoid colon and pericolonic stranding concerning for colitis. No evidence of perforation or abscess formation. Limited evaluation without oral contrast. New
Nodular hepatic margin and varices suggesting cirrhosis.
Diverticulosis. No evidence of acute diverticulitis.
05/28/25 limited US
FINDINGS: The liver is normal in size, measuring 13.6 cm in length. It is increased in echogenicity. There is no focal hepatic lesion or intrahepatic biliary dilation. The gallbladder is distended. It measures 9 cm in length. No gallstones, wall
thickening or pericholecystic fluid is noted. The common duct is dilated, measuring 9 mm. It previously measured 12 mm 2023. The pancreas is obscured by overlying bowel gas.
IMPRESSION: Distended gallbladder and common bile duct as described above. No additional secondary findings to suggest acute cholecystitis. Similar findings were present 06/2024 suggesting likely not an acute process.. Clinical and laboratory
correlation recommended. These findings could also further be evaluated by MRCP or ERCP if indicated.
Hepatic fatty infiltration. Stable
-dark stools with concern for UGI bleeding hbg stable BUN up to 19 on admission
-constipation with lower abdominal pain with recent narcotic use
-cirrhosis newly diagnosed in March 2025-- MELD calculated at MELD 15 on admission labs
-recent EGD with GOV2, esophageal varices which extend along the fundus
-colon AVM
-CT and US on admission with GB distention
-CBD dilatation-- has been ongoing prior to admission recommended OP MRI
-confusion on admission with ammonia <9
-mild coagulopathy
-ETOH abuse
-hypokalemia on admission
other med problems:
GERD, anxiety, depression, bipolar, Takosubo heart disease, prior AZ, asthma, insomnia, colon polyps
PLAN:
etiology of dark stool with recnet NSAID use related to PUD, GOV noted on recent EGD vs less likely varceal bleeding as noted stable overnight
plan for EGD today
cont Protonix and Octeotide gtt til EGD then determine need to continued
NSAID avoidance
cont abx in setting of bleeding with cirrhosis
NPO
add Miralax to start in AM with constipation related to narcotic use
mental status issue may be related to narcotic use with cirrhosis - would cont to hold, ammonia <9-- mental status stable this am
cont thiamine and folate
with GB distention and CBD dilation if continued abdominal pain consider MRI inpatient-- otherwise pt was due for OP imaging CBD dilation has been chronic for several months
stressed need for completed ETOH abstinence with fall, confusion and newly diagnosed cirrhosis
K improved s/p repletion
repeat MELD labs in AM
-
-
Thank you for consultation and allowing me to participate in the patient's care. Please call the siphon operator GI physician during the after hours with any questions or concerns.
[2025-05-29] MEDS: SYMBICORT 80/4.5 MCG INHALER 2 PUFF INH ×2 (07:26→18:16)
[2025-05-29] MEDS: SPIRIVA RESPIMAT 2.5 MCG 2 PUFF INH (07:27)
[2025-05-29] MEDS: FOLVITE 1 MG PO (08:08)
[2025-05-29] MEDS: PROTONIX 100 IV ×2 (08:08→19:36)
[2025-05-29] MEDS: THIAMINE INJECTION 200 MG IV ×2 (08:08→19:36)
[2025-05-29] MEDS: SANDOSTATIN 250 MCG IV ×2 (10:05→19:35)
--- NOTE | 2025-05-29 10:15 | PTCARENOTE ---
Pt to GI lab via [email or web address].
--- NOTE | 2025-05-29 10:15 | W.PN.HOSP.TC ---
Today's Communication/Plan
-
EGD
Resume psych meds and benzos to avoid withdrawal
Assessment / Plan
Assessment / Plan
74F with alcohol use disorder, cirrhosis and known varices, R fibula ORIF one week ago, p/w N/V, black stools and confusion.
Upper GI Bleed
Suspected peptic ulcer disease given use of NSAIDs
possible Variceal bleed given known esophageal varices
continue IVF
Trend H&H
PPI drip, octreotide drip, IV ceftriaxone
GI consulted
EGD today
Acute toxic/metabolic encephalopathy
[place] 2/2 polypharmacy
Could be due to hepatic encephalopathy due to GI bleed however ammonia is low
Alcohol use could also be contributing
Hold oxycodone and benzos
Delirium protocol
Continue to monitor
Anxiety / Depression /Bipolar Disorder
Held benzos overnight given encephalopathy, however will need to resume as do not want to precipitate withdrawal
Continue citalopram and quetiapine
Elevated Bilirubin
-Patient has long standing history of common bile duct dilation however bilirubin has not previously been elevated
-Consider MRI/MRCP when stable
-Continue to trend bilirubin
EtOH use disorder
MSAS protocol
No E/O withdrawal at this time
Thiamine/folate
R fibula fracture
s/p ORIF 1 week ago
NWB
Clarify with Ortho
PT/OT
HTN
Hold lisinopril given GI bleed
BP control
DVT PPx
SCDs
Anticipated Discharge: > 48 hours
Subjective/Interval History
-
Date of Service: May 29, 2025
No acute issues overnight, Going to EGD today
Objective Data
-
Labs:
Laboratory Results
05/28/25 05/29/25
23:38 04:47
WBC 4.3 L
Hgb 10.8 L 10.4 L
Hct 32.7 L 31.0 L
Plt Count 136
Sodium 144
Potassium 4.1
Chloride 117 H
Carbon Dioxide 18 L
BUN 15
Creatinine 0.7
Glucose 107 H
Calcium 7.9 L
Total Bilirubin 3.1 H
AST 49 H
ALT 29
Alkaline Phosphatase 103
Vital Signs:
Vital Signs
Temp Pulse Resp BP Pulse Ox
98.5 F 81 16 147/60 98
05/29/25 07:29 05/29/25 10:00 05/29/25 10:00 05/29/25 10:00 05/29/25 10:00
I&O
05/28/25 05/29/25 05/30/25
06:59 06:59 06:59
Intake Total 800 / 800
Balance 800 / 800
Review of Systems
-
All other systems: Reviewed and negative
Physical Exam
-
General: Well Developed, Well Nourished, No Apparent Distress and Comfortable
HEENT: Normocephalic, Moist Mucous Membranes, Anicteric and PERRLA
Respiratory: Non Labored Respirations
Musculoskeletal: No Edema
Skin: Warm and Dry
Neuro: Awake and AO x 3
Psych: Calm
Data Reviewed
-
CT Scan: Report Reviewed by me
Labs: Labs Reviewed by me
[2025-05-29] MEDS: CELEXA 40 MG PO (11:50)
[2025-05-29] MEDS: NULYTELY SOLUTION 4 LITERS PO (15:25)
--- NOTE | 2025-05-29 15:34 | PTCARENOTE ---
Pt to begin bowel prep. Educated on plan of care. Bowel prep started, see MAR.
--- NOTE | 2025-05-29 16:14 | CM ---
I.A: Completed By KAILA Hannah
Patient lives with her in a [address] with ARLYN and inside. DME: just a walker she brought to the hospital, No VN/PT, and No Inpatient Rehab.
PCP: Dr. Amanda Nichols
Pharmaacy: [facility]
Patient has transport home. PLAN: Anticipate Home No Needs.
[2025-05-29] MEDS: ZOFRAN 4 MG IV (19:39)
--- NOTE | 2025-05-29 20:00 | PTCARENOTE ---
Addendum entered by Sada Huggins RN 05/30/25 06:42:
pt unable to finish prep. pt incontinent of stool on pads. stool watery - mostly yellow, with some amounts of brown stool. updated [employer] STATEMENT DISTRIBUTION CLERK regarding labs and stool
Original Note:
pt is on bowel prep. pt refusing to drink prep. explained why it is importance to drink prep and if she doesn't clear out then she will just have to repeat. pt slowly working on prep. pt is NWB to RLE- splint and jay wrap intact. +popiteal pulse. pt
able to wiggle toes. ~ +1 edema.
[2025-05-29] MEDS: KLONOPIN 0.5 MG PO (21:19)
[2025-05-29] MEDS: SEROQUEL 50 MG PO (21:19)
[2025-05-29] MEDS: ROCEPHIN 1000 MG IV (23:34)
[2025-05-29] MEDS: STERILE WATER FOR INJECTION 10 ML IV (23:34)
[2025-05-30] VITALS (16 sets, daily range): BP systolic 18–156; BP diastolic 56–94; BMI 33.3
[2025-05-30 05:57] LABS: INR 1.52; PT 18.8 Sec (11.4-14.6)
[2025-05-30 06:06] LABS: Hematocrit 28.5 % (37.0-47.0); Hemoglobin 9.4 g/dL (12.0-16.0); Mean Corp Hgb Conc. 33.0 g/dL (33.0-37.0); Mean Corpuscular Volume 103.3 fL (81.0-99.0); Platelet Count 105 10^3/uL (130-400); Red Cell Dist. Width 14.6 % (11.5-14.5)
[2025-05-30 06:08] LABS: ALT (SGPT) 30 U/L (0-35); AST (SGOT) 54 U/L (14-36); Albumin 3.0 g/dl (3.5-5.0); Alkaline Phosphatase 87 U/L (38-126); Blood Urea Nitrogen 10 mg/dl (7-17); Calcium 7.4 mg/dl (8.4-10.2); Carbon Dioxide 21 mmol/L (22-30); Chloride 113 mmol/L (98-107); Estimated Creatinine Clearance 74 ml/min; Glucose 103 mg/dl (70-99); Potassium 3.3 mmol/L (3.5-5.1); Sodium 136 mmol/L (135-145); Total Protein 6.1 g/dl (6.3-8.2); eGFR > 60.00
[2025-05-30] MEDS: PROTONIX 100 IV (06:19)
[2025-05-30] MEDS: NSS 1000 IV ×2 (06:22→17:19)
[2025-05-30] MEDS: KCL 40 MEQ PO (06:49)
[2025-05-30] MEDS: SPIRIVA RESPIMAT 2.5 MCG 2 PUFF INH (07:32)
[2025-05-30] MEDS: SYMBICORT 80/4.5 MCG INHALER 2 PUFF INH ×2 (07:32→19:50)
[2025-05-30] MEDS: FOLVITE 1 MG PO (08:40)
[2025-05-30] MEDS: THIAMINE INJECTION 200 MG IV ×2 (08:40→21:04)
[2025-05-30] MEDS: CELEXA 40 MG PO (08:40)
[2025-05-30] MEDS: MIRALAX PO (09:09)
[2025-05-30] MEDS: PROTONIX IV 40 MG IV (10:43)
[2025-05-30] MEDS: NSS (PRESERVATIVE FREE) 10 ML IV (10:44)
--- NOTE | 2025-05-30 12:04 | W.PN.HOSP.TC ---
Today's Communication/Plan
-
S/p colonoscopy
Trend H&H as it has dropped today
Clarify with Ortho plan for the leg
Likely DC home tomorrow
Assessment / Plan
Assessment / Plan
74F with alcohol use disorder, cirrhosis and known varices, R fibula ORIF one week ago, p/w N/V, black stools and confusion.
Suspected upper GI Bleed
Suspected peptic ulcer disease given use of NSAIDs, possible Variceal bleed given known esophageal varices
Monitoring H&H, 11.4-> 9.4, hemodynamically stable
Underwent EGD, small varices, nonbleeding, small hiatal hernia, no ulcerations or AVMs.
Underwent colonoscopy, diverticulosis, few small angioectasias, nonbleeding, internal hemorrhoids, large, nonbleeding, rectal varices, nonbleeding.
PPI changed to IV once daily, octreotide drip stopped, IV ceftriaxone
GI consult appreciated, have signed off. Follow-up with Dr. Lock in 2 to 3 months
Avoid NSAIDs, avoid alcohol
Acute toxic/metabolic encephalopathy�resolved
[place] 2/2 polypharmacy
Could be due to hepatic encephalopathy due to GI bleed however ammonia is low and patient not having asterixis
Alcohol use could also be contributing
Hold oxycodone, resumed benzos to avoid withdrawal
Delirium protocol
Continue to monitor
Anxiety / Depression /Bipolar Disorder
No further encephalopathy, resumed benzos.
Continue citalopram and resumed quetiapine at a lower dose
Elevated Bilirubin
-Patient has long standing history of common bile duct dilation however bilirubin has not previously been elevated
-Consider MRI/MRCP as outpatient
-Continue to trend bilirubin, 3.1-->2
EtOH use disorder
MSAS protocol
No E/O withdrawal at this time
Thiamine/folate
R fibula fracture
s/p ORIF 1 week ago
NWB
Clarify with Ortho
PT/OT
HTN
Hold lisinopril given GI bleed
BP controlled.
DVT PPx
SCDs
Anticipated Discharge: > 48 hours
Subjective/Interval History
-
Date of Service: May 30, 2025
Patient feeling well, denies any more black stool, abdominal pain. Notes that she was taking oral iron at home, in addition to a lot of NSAIDs, a lot of oxycodone that was prescribed to her after her surgery. at bedside.
Objective Data
-
Labs:
Laboratory Results
05/30/25
05:16
WBC 4.6 L
Hgb 9.4 L
Hct 28.5 L
Plt Count 105 L D
PT 18.8 H
INR 1.52
Sodium 136 D
Potassium 3.3 L
Chloride 113 H
Carbon Dioxide 21 L
BUN 10
Creatinine 0.7
Glucose 103 H
Calcium 7.4 L
Total Bilirubin 2.0 H D
AST 54 H
ALT 30
Alkaline Phosphatase 87
Vital Signs:
Vital Signs
Temp Pulse Resp BP Pulse Ox
98.4 F 75 18 118/56 93
05/30/25 11:30 05/30/25 10:20 05/30/25 10:20 05/30/25 10:20 05/30/25 10:20
I&O
05/29/25 05/30/25 05/31/25
06:59 06:59 06:59
Intake Total 800 / 800 4350 / 4350
Balance 800 / 800 4350 / 4350
Review of Systems
-
History Source: Patient
All other systems: Reviewed and negative
Physical Exam
-
General: Well Developed, Well Nourished, No Apparent Distress and Comfortable
HEENT: Normocephalic, Moist Mucous Membranes, Anicteric and PERRLA
Respiratory: Clear to Auscultation and Non Labored Respirations; Negative Wheezes, Rales or Rhonchi
Cardiac: Regular Rhythm; Negative Murmur, Rub or Gallop
GI: Soft, Nontender, Nondistended and Normal Bowel Sounds
Musculoskeletal: No Edema
Skin: Warm and Dry
Neuro: Awake and AO x 3
Psych: Calm
Data Reviewed
-
CT Scan: Report Reviewed by me
Medical Tests (Nuc Med, Echo etc): Report Reviewed by me (Colonoscopy) and Discussed with Nurse
Labs: Labs Reviewed by me, Discussed with Nurse and Discussed with Patient
--- NOTE | 2025-05-30 14:34 | CM ---
Alcohol use disorder, cirrhosis and known varices, R fibula ORIF one week ago, N/V, black stools and confusion. S/P colonoscopy 05/29/25. Following H/H, 9.11/04.5 today. Discharge POC: Patient lives with her . Undecided if she wants a HH RN.
Plan is for discharge to home possibly on weekend.
--- NOTE | 2025-05-30 15:25 | PTCARENOTE ---
Recd pt this AM. now s/p colonoscopy. Bedrest for today ordered. resting comfortably. awake and alert, tolerating PO intake.
--- NOTE | 2025-05-30 20:00 | PTCARENOTE ---
pt is aax3, no c/o pain. resting in bed watching tcv. eating and drinker w.o issues. labs in am
[2025-05-30] MEDS: KLONOPIN 0.5 MG PO (21:04)
[2025-05-30] MEDS: SEROQUEL 50 MG PO (21:04)
[2025-05-30] MEDS: ROCEPHIN 1000 MG IV (22:05)
[2025-05-30] MEDS: STERILE WATER FOR INJECTION 10 ML IV (22:06)
[2025-05-30] MEDS: NSS IV (22:33)
[2025-05-31] VITALS (13 sets, daily range): BP systolic 104–152; BP diastolic 54–84; PULSE 71; O2SAT 95; BMI 33.7
[2025-05-31 07:28] LABS: Hematocrit 28.8 % (37.0-47.0); Hemoglobin 9.5 g/dL (12.0-16.0); Mean Corp Hgb Conc. 33.0 g/dL (33.0-37.0); Mean Corpuscular Volume 99.3 fL (81.0-99.0); Platelet Count 102 10^3/uL (130-400); Red Cell Dist. Width 14.1 % (11.5-14.5)
--- NOTE | 2025-05-31 07:39 | PTCARENOTE ---
Cannot verify VS captured from prior shift.
[2025-05-31] MEDS: SYMBICORT 80/4.5 MCG INHALER 2 PUFF INH ×2 (07:40→20:49)
[2025-05-31] MEDS: SPIRIVA RESPIMAT 2.5 MCG 2 PUFF INH (07:40)
[2025-05-31 07:53] LABS: ALT (SGPT) 32 U/L (0-35); AST (SGOT) 55 U/L (14-36); Albumin 2.9 g/dl (3.5-5.0); Alkaline Phosphatase 82 U/L (38-126); Blood Urea Nitrogen 10 mg/dl (7-17); Calcium 7.8 mg/dl (8.4-10.2); Carbon Dioxide 19 mmol/L (22-30); Chloride 115 mmol/L (98-107); Estimated Creatinine Clearance 75 ml/min; Glucose 99 mg/dl (70-99); Potassium 3.5 mmol/L (3.5-5.1); Sodium 138 mmol/L (135-145); Total Protein 5.8 g/dl (6.3-8.2); eGFR > 60.00
[2025-05-31] MEDS: FOLVITE 1 MG PO (09:37)
[2025-05-31] MEDS: MIRALAX 17 GRAMS PO (09:37)
[2025-05-31] MEDS: PROTONIX IV 40 MG IV (09:37)
[2025-05-31] MEDS: NSS (PRESERVATIVE FREE) 10 ML IV (09:37)
[2025-05-31] MEDS: CELEXA 40 MG PO (09:37)
[2025-05-31] MEDS: THIAMINE INJECTION 200 MG IV ×2 (09:37→21:35)
--- NOTE | 2025-05-31 10:28 | W.PN.HOSP.TC ---
Today's Communication/Plan
-
H/H stable
PT eval as patient having trouble following NWB instructions
Home PT
Discharge today
Assessment / Plan
Assessment / Plan
74F with alcohol use disorder, cirrhosis and known varices, R fibula ORIF one week ago, p/w N/V, black stools and confusion.
Suspected upper GI Bleed
Suspected peptic ulcer disease given use of NSAIDs, possible Variceal bleed given known esophageal varices
Monitoring H&H, 11.4-> 9.4 --> 9.5, hemodynamically stable
Underwent EGD, small varices, nonbleeding, small hiatal hernia, no ulcerations or AVMs.
Underwent colonoscopy, diverticulosis, few small angioectasias, nonbleeding, internal hemorrhoids, large, nonbleeding, rectal varices, nonbleeding.
PPI changed to IV once daily, octreotide drip stopped, IV ceftriaxone stopped
GI consult appreciated, have signed off. Follow-up with Dr. Greer in 2 to 3 months
Avoid NSAIDs, avoid alcohol
Acute toxic/metabolic encephalopathy�resolved
[place] 2/2 polypharmacy
Could be due to hepatic encephalopathy due to GI bleed however ammonia is low and patient not having asterixis
Alcohol use could also be contributing
Hold oxycodone, resumed benzos to avoid withdrawal
Delirium protocol
Continue to monitor
Anxiety / Depression /Bipolar Disorder
No further encephalopathy, resumed benzos.
Continue citalopram and resumed quetiapine at a lower dose
Elevated Bilirubin - resolved
-Patient has long standing history of common bile duct dilation however bilirubin has not previously been elevated
-Consider MRI/MRCP as outpatient
-Continue to trend bilirubin, 3.1-->2--> 1.3
EtOH use disorder
MSAS protocol
No E/O withdrawal at this time
Thiamine/folate
R fibula fracture
s/p ORIF 1 week ago
NWB
PT ordered for home education/ home PT
HTN
Hold lisinopril given GI bleed
BP controlled can resume as outpt
DVT PPx
SCDs
Anticipated Discharge: Today
Subjective/Interval History
-
Date of Service: May 31, 2025
Patient did not have any further BMs. Feels well. Sister at bedside, updated on test results and plan of care. Sister is concerned that patient is not following instructions to be NWB on RLE. D/W RN also at bedside.
Objective Data
-
Labs:
Laboratory Results
05/31/25
06:14
WBC 4.6 L
Hgb 9.5 L
Hct 28.8 L
Plt Count 102 L
Sodium 138
Potassium 3.5
Chloride 115 H
Carbon Dioxide 19 L
BUN 10
Creatinine 0.7
Glucose 99
Calcium 7.8 L
Total Bilirubin 1.3
AST 55 H
ALT 32
Alkaline Phosphatase 82
Vital Signs:
Vital Signs
Temp Pulse Resp BP Pulse Ox
98.8 F 84 14 122/59 94
05/31/25 07:28 05/31/25 07:45 05/31/25 07:45 05/31/25 06:00 05/31/25 08:58
I&O
05/30/25 05/31/25 06/01/25
06:59 06:59 06:59
Intake Total 4350 / 4350
Output Total 125 / 125
Balance 4350 / 4350 -125 / -125
Review of Systems
-
History Source: Patient
All other systems: Reviewed and negative
Physical Exam
-
General: Well Developed, Well Nourished, No Apparent Distress and Comfortable
HEENT: Normocephalic, Moist Mucous Membranes, Anicteric and PERRLA
Respiratory: Clear to Auscultation and Non Labored Respirations; Negative Wheezes, Rales or Rhonchi
Cardiac: Regular Rhythm; Negative Murmur, Rub or Gallop
GI: Soft, Nontender, Nondistended and Normal Bowel Sounds
Musculoskeletal: No Edema
Skin: Warm and Dry
Neuro: Awake and AO x 3
Psych: Calm
Data Reviewed
-
CT Scan: Report Reviewed by me
Medical Tests (Nuc Med, Echo etc): Report Reviewed by me (Colonoscopy) and Discussed with Nurse
Labs: Labs Reviewed by me, Discussed with Nurse, Discussed with Patient and Discussed with Family
--- NOTE | 2025-05-31 14:27 | PTCARENOTE ---
Addendum entered by Jessie Lora 05/31/25 16:25:
Per PT, pt will need SNF.
Original Note:
Pt for d/c pending clearance by PT. Awaiting visit from PT. Updated pt and case management.
--- NOTE | 2025-05-31 16:17 | CM ---
Patient seen today with
PT eval completed - rec SNF
patient agreeable - Medicare.gov list given to her & she will review & will let CM know tomorrow of which facilities to place referrals.
will need ins auth once bed secured
PLAN: SNF, CM to follow up tomorrow with referral choices to enter in careport.
--- NOTE | 2025-05-31 16:25 | PTCARENOTE ---
Pt's assessment and care as documented. Medications administered as ordered. VSS. OOB to chair with PT. Ringing appropriately, call gutierrez within reach.
[2025-05-31] MEDS: SEROQUEL 50 MG PO (21:34)
[2025-05-31] MEDS: KLONOPIN 0.5 MG PO (21:34)
[2025-06-01] VITALS (8 sets, daily range): BP systolic 122–159; BP diastolic 41–127
--- NOTE | 2025-06-01 05:03 | PTCARENOTE ---
pt aao, no c/o pain. pt reports she had a normal bm during the day. no bood noted. call gutierrez in reach
[2025-06-01 05:23] LABS: Hematocrit 29.5 % (37.0-47.0); Hemoglobin 9.7 g/dL (12.0-16.0); Mean Corp Hgb Conc. 32.9 g/dL (33.0-37.0); Mean Corpuscular Volume 99.3 fL (81.0-99.0); Platelet Count 103 10^3/uL (130-400); Red Cell Dist. Width 13.8 % (11.5-14.5)
[2025-06-01 05:42] LABS: Blood Urea Nitrogen 9 mg/dl (7-17); Calcium 8.2 mg/dl (8.4-10.2); Carbon Dioxide 21 mmol/L (22-30); Chloride 113 mmol/L (98-107); Estimated Creatinine Clearance 75 ml/min; Glucose 82 mg/dl (70-99); Magnesium 1.6 mg/dl (1.6-2.3); Potassium 3.1 mmol/L (3.5-5.1); Sodium 139 mmol/L (135-145); eGFR > 60.00
[2025-06-01] MEDS: SPIRIVA RESPIMAT 2.5 MCG 2 PUFF INH (07:58)
[2025-06-01] MEDS: SYMBICORT 80/4.5 MCG INHALER 2 PUFF INH ×2 (07:59→18:45)
--- NOTE | 2025-06-01 08:32 | W.PN.HOSP.TC ---
Today's Communication/Plan
-
PT/OT rec SNF, awaiting placement
Resume BP meds
Assessment / Plan
Assessment / Plan
74F with alcohol use disorder, cirrhosis and known varices, R fibula ORIF one week ago, p/w N/V, black stools and confusion.
Suspected upper GI Bleed with acute blood loss anemia
Suspected peptic ulcer disease given use of NSAIDs, possible Variceal bleed given known esophageal varices
Monitoring H&H, 11.4-> 9.4 --> 9.5, hemodynamically stable
Underwent EGD, small varices, nonbleeding, small hiatal hernia, no ulcerations or AVMs.
Underwent colonoscopy, diverticulosis, few small angioectasias, nonbleeding, internal hemorrhoids, large, nonbleeding, rectal varices, nonbleeding.
PPI changed to oral once daily, octreotide drip stopped, IV ceftriaxone stopped
GI consult appreciated, have signed off. Follow-up with Dr. Greer in 2 to 3 months, if repeat bleeding will need small bowel capsule endoscopy
Avoid NSAIDs, avoid alcohol
Acute toxic/metabolic encephalopathy�resolved
[place] 2/2 polypharmacy
Could be due to hepatic encephalopathy due to GI bleed however ammonia is low and patient not having asterixis
Alcohol use could also be contributing
Hold oxycodone, resumed benzos to avoid withdrawal
Delirium protocol
Continue to monitor
Anxiety / Depression /Bipolar Disorder
No further encephalopathy, resumed benzos to avoid withdrawal.
Continue citalopram and resumed quetiapine at a lower dose
Elevated Bilirubin - resolved
-Patient has long standing history of common bile duct dilation however bilirubin has not previously been elevated
-Consider MRI/MRCP as outpatient
-Continue to trend bilirubin, 3.1-->2--> 1.3
EtOH use disorder
MSAS protocol
No E/O withdrawal at this time
Thiamine/folate
R fibula fracture
s/p ORIF 1 week ago
NWB
PT rec SNF
HTN
Held lisinopril given GI bleed
BP now elevated, can resume
DVT PPx
SCDs
Anticipated Discharge: Within 24 hours
Subjective/Interval History
-
Date of Service: June 01, 2025
Had BM overnight, brown, no red or black
Objective Data
-
Labs:
Laboratory Results
06/01/25
04:42
WBC 5.1
Hgb 9.7 L
Hct 29.5 L
Plt Count 103 L
Sodium 139
Potassium 3.1 L
Chloride 113 H
Carbon Dioxide 21 L
BUN 9
Creatinine 0.7
Glucose 82
Calcium 8.2 L
Vital Signs:
Vital Signs
Temp Pulse Resp BP Pulse Ox
98.7 F 72 19 159/74 93
06/01/25 08:07 06/01/25 08:04 06/01/25 08:04 06/01/25 06:00 06/01/25 08:04
I&O
05/31/25 06/01/25 06/02/25
06:59 06:59 06:59
Intake Total 240 / 240
Output Total 125 / 125
Balance -125 / -125 240 / 240
Review of Systems
-
History Source: Patient
All other systems: Reviewed and negative
Physical Exam
-
General: Well Developed, Well Nourished, No Apparent Distress and Comfortable
HEENT: Normocephalic, Moist Mucous Membranes, Anicteric and PERRLA
Respiratory: Clear to Auscultation and Non Labored Respirations; Negative Wheezes, Rales or Rhonchi
Cardiac: Regular Rhythm; Negative Murmur, Rub or Gallop
GI: Soft, Nontender, Nondistended and Normal Bowel Sounds
Musculoskeletal: No Edema and Other (RLE in dressing)
Skin: Warm and Dry
Neuro: Awake and AO x 3
Psych: Calm
Data Reviewed
-
CT Scan: Report Reviewed by me
Medical Tests (Nuc Med, Echo etc): Report Reviewed by me (Colonoscopy) and Discussed with Nurse
Labs: Labs Reviewed by me, Discussed with Nurse, Discussed with Patient and Discussed with Family
[2025-06-01] MEDS: FOLVITE 1 MG PO (09:04)
[2025-06-01] MEDS: CELEXA 40 MG PO (09:05)
[2025-06-01] MEDS: VITAMIN B1 100 MG PO ×2 (09:05→19:08)
[2025-06-01] MEDS: PROTONIX IV 40 MG IV (09:05)
[2025-06-01] MEDS: MIRALAX 17 GRAMS PO (09:05)
[2025-06-01] MEDS: NSS (PRESERVATIVE FREE) 10 ML IV ×2 (09:06→09:07)
--- NOTE | 2025-06-01 10:04 | CM ---
CM spoke with pt. Choices for SNF are:
1. [facility] [place] [facility] [facility].
Referrals sent via CarePort-pending bed offers at this time.
Pt will require PT and OT within 24hrs of dc for insurance auth.
CM/SW will continue to follow to ensure a safe and timely dc.
[2025-06-01] MEDS: ZESTRIL 5 MG PO (13:36)
--- NOTE | 2025-06-01 15:08 | PTCARENOTE ---
pt downgraded to med surg. being transferred to [facility]. report given to Clarisa.
[2025-06-01] MEDS: KCL 40 MEQ PO (15:52)
--- NOTE | 2025-06-01 16:15 | PTCARENOTE ---
received pt from [facility] AO x3. LCTA b/L RA, MS, abd round obese +bsx4. Bishop brace to LLE. Kiana WNL. skin otherwise intact. PT denies pain, CB in reach instructed to use.
[2025-06-01] MEDS: KLONOPIN 0.5 MG PO (22:03)
[2025-06-01] MEDS: SEROQUEL 50 MG PO (22:03)
[2025-06-02 07:08] VITALS: BP 146/77
[2025-06-02] MEDS: FOLVITE 1 MG PO (08:06)
[2025-06-02] MEDS: ZESTRIL 5 MG PO (08:07)
[2025-06-02] MEDS: PROTONIX 40 MG PO (08:07)
[2025-06-02] MEDS: VITAMIN B1 100 MG PO ×2 (08:07→20:23)
[2025-06-02] MEDS: CELEXA 40 MG PO (08:07)
[2025-06-02] MEDS: MIRALAX 17 GRAMS PO (08:08)
[2025-06-02] MEDS: SPIRIVA RESPIMAT 2.5 MCG 2 PUFF INH (08:22)
[2025-06-02] MEDS: SYMBICORT 80/4.5 MCG INHALER 2 PUFF INH ×2 (08:24→20:24)
--- NOTE | 2025-06-02 10:42 | W.PN.HOSP.TC ---
Today's Communication/Plan
-
see plan
Assessment / Plan
Assessment / Plan
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
Gen: NAD, Awake and alert
Eyes: EOMI, PERRLA, no scleral icterus.
Neck: supple.
CV: RRR, +S1/S2, no m/r/g.
Resp: CTAB, no rales, wheezes, or rhonchi.
Abd: +BS, soft, NT, ND
Skin: No rashes.
Neuro: CN 2-12 intact, non-focal.
Psych: Normal mood and affect.
CT brain: No acute intracranial abnormality noted. Mild atrophy. New.
CT A/P: New distended gallbladder and stable dilated common bile duct. Acute cholecystitis should be considered. This would better be evaluated by abdominal ultrasound as well as clinical and laboratory correlation. Mild circumferential wall
thickening of the sigmoid colon and pericolonic stranding concerning for colitis. No evidence of perforation or abscess formation. Limited evaluation without oral contrast. New nodular hepatic margin and varices suggesting cirrhosis. Diverticulosis.
No evidence of acute diverticulitis.
Abd U/S: Distended gallbladder and common bile duct as described above. No additional secondary findings to suggest acute cholecystitis. Similar findings were present 06/2024 suggesting likely not an acute process.. Clinical and laboratory
correlation recommended. These findings could also further be evaluated by MRCP or ERCP if indicated.
Suspected UGIB with acute blood loss anemia:
-Hb currently stabilized in the 9s
-s/p EGD: small varices, nonbleeding, small hiatal hernia, no ulcerations or AVMs.
-s/p colonoscopy: diverticulosis, few small angioectasias, nonbleeding, internal hemorrhoids, large, nonbleeding, rectal varices, nonbleeding.
-was on IV PPI, now transitioned to PO PPI
-was on octreotide drip and IV ceftriaxone, now stopped
-GI consult appreciated, have signed off. Follow-up with Dr. Greer in 2 to 3 months, if repeat bleeding will need small bowel capsule endoscopy
-avoid NSAIDs, avoid alcohol
Acute toxic/metabolic encephalopathy:
-now resolved
-likely due to polypharmacy as well as alcohol use, Oxycodone stopped, Celexa and Seroquel dosing reduced. Was off benzodiazepines but now restarted to prevent withdrawal.
-highly doubt hepatic encephalopathy as ammonia was low patient without asterixis
Other problems:
Anxiety/Depression/Bipolar Disorder: cont Celexa/Seroquel/Klonopin
Elevated Bilirubin, resolved
Alcohol abuse disorder: was on MSAS protocol and without evidence of alcohol withdrawal at this time, cont thiamine/folate
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
Essential HTN: cont Lisinopril
Obesity due to excess calories
FULL/SCDs
Total time spent on today's encounter was 50 minutes which included time spent in counseling the patient/family regarding diagnosis and treatment plan as listed above, goals of care, and symptom management. Case was discussed with nursing staff,
specialists, and care coordinators/case management. All labs and imaging personally reviewed by me. Remainder the time spent in detailed review of previous records, lab data, imaging, and other medical provider documentation.
Anticipated Discharge: Within 24 hours
Subjective/Interval History
-
Date of Service: June 02, 2025
Objective Data
-
Vital Signs:
Vital Signs
Temp Pulse Resp BP Pulse Ox
98.9 F 79 16 146/77 94
06/02/25 07:08 06/02/25 08:07 06/02/25 07:08 06/02/25 08:07 06/02/25 07:08
I&O
06/01/25 06/02/25 06/03/25
06:59 06:59 06:59
Intake Total 240 / 240 720 / 720
Balance 240 / 240 720 / 720
--- NOTE | 2025-06-02 12:53 | CM ---
Addendum entered by Claudia Persaud 06/02/25 15:23:
Auth submitted to [facility] faxed to [phone], can call to check status at [phone]. Pending reference #[id number].
Original Note:
CM reviewed chart, patient seen bedside.
Patient aware [facility] can accept patient for tomorrow, will require insurance auth.
Patient will require OT notes for SNF auth.
Updated clinicals/PASSR sent to [facility].
CM will continue to follow.
Plan; [facility] SNF, will require insurance auth
[2025-06-02 15:00] VITALS: BP 135/71
[2025-06-02 15:03] VITALS: BP 122/64; PULSE 61; O2SAT 95
[2025-06-02] MEDS: SEROQUEL 50 MG PO (21:48)
[2025-06-02] MEDS: KLONOPIN 0.5 MG PO (21:48)
[2025-06-02 23:35] VITALS: BP 128/67
[2025-06-03] MEDS: PROTONIX 40 MG PO (07:12)
[2025-06-03] MEDS: ZESTRIL 5 MG PO (07:12)
[2025-06-03] MEDS: VITAMIN B1 100 MG PO (07:12)
[2025-06-03] MEDS: CELEXA 40 MG PO (07:12)
[2025-06-03] MEDS: MIRALAX 17 GRAMS PO (07:13)
[2025-06-03] MEDS: FOLVITE 1 MG PO (07:13)
[2025-06-03] MEDS: SYMBICORT 80/4.5 MCG INHALER 2 PUFF INH (07:41)
[2025-06-03] MEDS: SPIRIVA RESPIMAT 2.5 MCG 2 PUFF INH (07:41)
[2025-06-03 08:05] VITALS: BP 146/68
--- NOTE | 2025-06-03 10:42 | W.PN.HOSP.TC ---
Today's Communication/Plan
-
d/c
Assessment / Plan
Assessment / Plan
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
Gen: NAD, Awake and alert
Eyes: EOMI, PERRLA, no scleral icterus.
Neck: supple.
CV: remains RRR, +S1/S2, no m/r/g.
Resp: remains CTAB, no rales, wheezes, or rhonchi.
Abd: remains +BS, soft, NT, ND
Skin: No rashes.
Neuro: CN 2-12 intact, non-focal.
Psych: Normal mood and affect.
CT brain: No acute intracranial abnormality noted. Mild atrophy. New.
CT A/P: New distended gallbladder and stable dilated common bile duct. Acute cholecystitis should be considered. This would better be evaluated by abdominal ultrasound as well as clinical and laboratory correlation. Mild circumferential wall
thickening of the sigmoid colon and pericolonic stranding concerning for colitis. No evidence of perforation or abscess formation. Limited evaluation without oral contrast. New nodular hepatic margin and varices suggesting cirrhosis. Diverticulosis.
No evidence of acute diverticulitis.
Abd U/S: Distended gallbladder and common bile duct as described above. No additional secondary findings to suggest acute cholecystitis. Similar findings were present 06/2024 suggesting likely not an acute process.. Clinical and laboratory
correlation recommended. These findings could also further be evaluated by MRCP or ERCP if indicated.
Suspected UGIB with acute blood loss anemia:
-Hb currently stabilized in the 9s
-s/p EGD: small varices, nonbleeding, small hiatal hernia, no ulcerations or AVMs.
-s/p colonoscopy: diverticulosis, few small angioectasias, nonbleeding, internal hemorrhoids, large, nonbleeding, rectal varices, nonbleeding.
-was on IV PPI, now transitioned to PO PPI
-was on octreotide drip and IV ceftriaxone, now stopped
-GI consult appreciated, have signed off. Follow-up with Dr. Greer in 2 to 3 months, if repeat bleeding will need small bowel capsule endoscopy
-avoid NSAIDs, avoid alcohol
Acute toxic/metabolic encephalopathy:
-now resolved
-likely due to polypharmacy as well as alcohol use, Oxycodone stopped, Celexa and Seroquel dosing reduced. Was off benzodiazepines but now restarted to prevent withdrawal.
-highly doubt hepatic encephalopathy as ammonia was low patient without asterixis
Other problems:
Anxiety/Depression/Bipolar Disorder: cont Celexa/Seroquel/Klonopin
Elevated Bilirubin, resolved
Alcohol abuse disorder: was on MSAS protocol and without evidence of alcohol withdrawal at this time, cont thiamine/folate
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
Essential HTN: cont Lisinopril
Obesity due to excess calories
FULL/SCDs
Medically cleared for discharge, case management aware.
Total time spent on d/c = 33 min. This included today's physical exam, progress note, review of laboratory and diagnostic data, preparation of discharge documents and prescriptions, and discussions about the pt's hospital course and discharge plan
with the patient and other medical transcription editor involved in the patient's care.
Anticipated Discharge: Today
Subjective/Interval History
-
Date of Service: June 03, 2025
No new complaints.
Objective Data
-
Vital Signs:
Vital Signs
Temp Pulse Resp BP Pulse Ox
98.0 F 76 16 146/68 93
06/03/25 08:05 06/03/25 08:05 06/03/25 08:05 06/03/25 08:05 06/03/25 08:05
I&O
06/02/25 06/03/25 06/04/25
06:59 06:59 06:59
Intake Total 720 / 720 700 / 700
Balance 720 / 720 700 / 700
--- NOTE | 2025-06-03 13:08 | CM ---
CM reviewed chart, CM spoke with patients insurance, auth approved 06/03-06/10, clinical updates can be faxed to [phone].
Updates provided to liaison at [facility].
Patient seen bedside with sister, IMM verbally reviewed, provided with copy, placed in chart.
Patient scheduled for 3:00 p.m. [id number] transport- cost $90, number provided to call for transport.
CM will continue to follow for all d/c needs.
Plan; [facility] SNF, 3:00 p.m. [email or web address] [facility] transport
[facility]
Report: [phone]
[2025-06-03 15:00] VITALS: BP 131/63
== END 2025-06-03 17:39 | DRG 377 ==
LOC: 4 WEST ACU 23:35
PROVIDERS: Internal Medicine; Internal Medicine Gastroenterology; Nurse Practitioner Adult Health; Nurse Practitioner Family; Physician Assistant Medical; ADMITTING PHYSICIAN Hospitalist; ATTENDING PHYSICIAN Internal Medicine; EMERGENCY PHYSICIAN Student in an Organized Health Care Education/Training Program; FAMILY PHYSICIAN Physician Assistant; OTHER PHYSICIAN Student in an Organized Health Care Education/Training Program
PROC: 0DJ08ZZ Inspection of Upper Intestinal Tract, Via Natural or Artificial Opening Endoscopic (ICD-10-PCS; 2025-05-29)
PROC: 0DJD8ZZ Inspection of Lower Intestinal Tract, Via Natural or Artificial Opening Endoscopic (ICD-10-PCS; 2025-05-30)
DX: K57.31 Diverticulosis of large intestine without perforation or abscess with bleeding (principal); G92.8 Other toxic encephalopathy; D62 Acute posthemorrhagic anemia; I85.10 Secondary esophageal varices without bleeding; F13.20 Sedative, hypnotic or anxiolytic dependence, uncomplicated; D68.9 Coagulation defect, unspecified; K70.30 Alcoholic cirrhosis of liver without ascites; I86.4 Gastric varices; K44.9 Diaphragmatic hernia without obstruction or gangrene; K22.2 Esophageal obstruction; K64.8 Other hemorrhoids; I86.8 Varicose veins of other specified sites; K55.21 Angiodysplasia of colon with hemorrhage; F10.10 Alcohol abuse, uncomplicated; K76.82 Hepatic encephalopathy; I10 Essential (primary) hypertension; D69.6 Thrombocytopenia, unspecified; E87.6 Hypokalemia; F31.9 Bipolar disorder, unspecified; J45.909 Unspecified asthma, uncomplicated; F41.9 Anxiety disorder, unspecified; Z96.652 Presence of left artificial knee joint; Z91.018 Allergy to other foods; Z88.1 Allergy status to other antibiotic agents; Z88.0 Allergy status to penicillin; E78.00 Pure hypercholesterolemia, unspecified; K82.8 Other specified diseases of gallbladder; K83.8 Other specified diseases of biliary tract; T40.2X1A Poisoning by other opioids, accidental (unintentional), initial encounter; I25.2 Old myocardial infarction; K21.9 Gastro-esophageal reflux disease without esophagitis; K59.03 Drug induced constipation; K76.0 Fatty (change of) liver, not elsewhere classified; M81.0 Age-related osteoporosis without current pathological fracture; Z79.899 Other long term (current) drug therapy; Z86.0100 Personal history of colon polyps, unspecified
CPT/HCPCS: 70450; 74177; 76705; 80048; 80053; 80306; 82140; 83690; 83735; 85014; 85018; 85025; 85027; 85610; 85730; 94640; 96361; 96374; 96375; 97116; 97163; 97167; 97530; 99285; J2354; Q9967

== ENCOUNTER → 2025-06-06 10:42 | Outpatient (REF) | payer OTHER, SELFPAY ==
[2025-06-06 11:04] LABS: Hematocrit 30.3 % (37.0-47.0); Hemoglobin 10.2 g/dL (12.0-16.0); Mean Corp Hgb Conc. 33.7 g/dL (33.0-37.0); Mean Corpuscular Volume 99.3 fL (81.0-99.0); Nucleated Red Blood Cells % 0 %; Platelet Count 173 10^3/uL (130-400); Red Cell Dist. Width 14.5 % (11.5-14.5)
[2025-06-06 11:18] LABS: Blood Urea Nitrogen 7 mg/dl (7-17); Calcium 8.6 mg/dl (8.4-10.2); Carbon Dioxide 27 mmol/L (22-30); Chloride 108 mmol/L (98-107); Glucose 86 mg/dl (70-99); Potassium 3.7 mmol/L (3.5-5.1); Sodium 138 mmol/L (135-145); eGFR > 60.00
== END ==
LOC: OLABP 10:42
PROVIDERS: ATTENDING PHYSICIAN Family Medicine
DX: K92.2 Gastrointestinal hemorrhage, unspecified (principal); E87.6 Hypokalemia; G92.8 Other toxic encephalopathy; E86.0 Dehydration; F10.10 Alcohol abuse, uncomplicated; K74.60 Unspecified cirrhosis of liver; I85.01 Esophageal varices with bleeding; D64.9 Anemia, unspecified; I10 Essential (primary) hypertension; F32.A Depression, unspecified; F41.9 Anxiety disorder, unspecified; S82.401D Unspecified fracture of shaft of right fibula, subsequent encounter for closed fracture with routine healing
CPT/HCPCS: 36415; 80048; 85025